=== PATIENT | female | born 1965 | race Caucasian/White ===

== ENCOUNTER 2017-06-19 16:49 | Emergency (ER) | payer BC ==
[2017-06-19 16:59] VITALS: BP 145/84
[2017-06-19] MEDS ORDERED: KETOROLAC TROMETHAMINE 60 MG/2 ML VIAL IM ONE ×2 (17:17→17:20)
--- NOTE | 2017-06-19 17:19 | ERNOTE ---
Lower Extremity HPI - Narrative Date of Service: 06/19/17 - General Lower Extremities Pain: foot: left, ankle: left Time Seen by Provider: 06/19/17 17:07 Source: patient, RN notes reviewed Exam Limitations: no limitations - Immun/Allergies/Home Medications Immunizations: IMMUNIZATION HX Immunizations Up to Date Yes History of Influenza Vaccine Yes Hx Pneumococcal Vaccination No Allergies/Adverse Reactions: Allergies Allergy/AdvReac Type Severity Reaction Status Date / Time codeine Allergy Mild Muscle Pain Verified 06/27/17 09:05 Home Medications: HOME MEDICATIONS Modafinil [Provigil] 200 mg PO DAILY 11/21/14 [Last Taken Unknown] Lansoprazole [Prevacid] 20 mg PO BID 01/28/15 [Last Taken Unknown] Sucralfate [Carafate] 1 gm PO QID 06/19/17 [Last Taken Unknown] Cyclobenzaprine HCl [Flexeril] 10 mg PO TID #30 tablet 06/27/17 [Last Taken Unknown] Estradiol 2 mg PO DAILY 06/27/17 [Last Taken Unknown] - History of Present Illness Narrative: 52 y/o female presents with left foot and ankle pain after twisting her ankle, causing her to fall. She is also having low back pain d/t the fall. Occurred: just prior to arrival Location of Incident: other Method of Injury: Reports: fell, twisted Loss of Consciousness: Reports: no loss of consciousness Associated Symptoms: Denies: unable to bear weight, snapping, popping sensation Other Injuries: Reports: back Subsequent Symptoms: Denies: sensory loss, numbness, motor loss Prior Treament: Denies: recently seen, similar symptoms before Review of Systems - Review of Systems Constitutional: Absent: recent illness, fever EYE: Present: no symptoms reported ENT: Present: no symptoms reported Respiratory: Present: no symptoms reported Cardiology: Absent: chest pain, syncope Gastrointestinal/Abdominal: Absent: nausea, vomiting, abdominal pain Genitourinary: Absent: dysuria, hematuria Musculoskeletal: Present: back pain, muscle pain, joint pain, joint swelling. Absent: neck pain Skin: Absent: rash, lesions, lumps Neurological: Absent: weakness, numbness, tingling Endocrine: Present: no symptoms reported Hematologic/Lymphatic: Absent: easy bruising, easy bleeding Psych: Present: no symptoms reported - Patient's Past Medical History Patient History - Medical: Depression, GERD Patient History - Cardiac/Respiratory: No pertinent hx Patient History - Cancer: No Hx of Cancer Patient History - Surgical Procedures: Appendectomy, Cholecystectomy, Hysterectomy Patient History - Other: None LMP (females 10-50): Menopausal - Social History Living Situations: home Abuse History: No History of abuse Psych History: No pertinent hx Smoking Status: Current every day smoker Alcohol Use: none Drug Use: none - Immunizations Immunizations Up to Date: Yes Hx Pneumococcal Vaccination: No History of Influenza Vaccine: Yes Physical Exam - Physical Exam General Appearance: Present: wd/wn, alert, no apparent distress Head Exam: Present: normal inspection, no evidence of injury Neck: Present: normal inspection, nontender, supple, full range of motion Respiratory: Present: no respiratory distress, normal breath sounds, no accessory muscle use, lungs clear Cardiovascular/Chest: Present: regular rate, rhythm, no murmur, normal peripheral pulses Peripheral Pulses: N=norm/S=strong/W=weak/B=bound/A=absent: Dorsalis-pedis (R): Strong, Dorsalis-pedis (L): Strong Back Exam: Present: normal range of motion, no CVA tenderness, no vertebral tenderness, other - mild paraspinal muscle tenderness in lumbar region bilaterally Extremity Exam: Present: no edema, decreased range of motion - Left ankle, other - Left lateral ankle tender to palpation, diffuse tenderness in foot, no ecchymosis or deformity. Absent: joint swelling Neurological Exam: Present: alert, oriented, normal mood/affect, no motor/ sensory deficits Skin Exam: Present: normal color, warm/dry ED Progress - Vital Signs Patient's Vital Signs:: I have reviewed the patient's vital signs. Vital Signs: Vital Signs 06/19/17 06/19/17 16:56 17:03 Temperature 37.2 C Pulse Rate 95 95 Respiratory 17 Rate Blood Pressure 145/84 O2 Sat by Pulse 98 Oximetry - X-Ray X-Ray #1 X-Ray: ankle Interpretation: Reviewed by me X-ray Comments: Left ankle - no acute osseous abnormality X-Ray #2 X-Ray: foot Interpretation: Reviewed by me X-ray Comments: Foot 3 Views LT * There is a questionable lucency projecting over the base of the fifth metatarsal bone. There is a tiny ossific fragment seen projecting over the lateral base of the second proximal phalanx which could represent an avulsion injury, of indeterminate age. Joint spaces are in gross normal alignment without subluxation or dislocation. Lisfranc joint grossly intact. Soft tissues are grossly normal. IMPRESSION: 1. Equivocal lucency over the base of the fifth metatarsal bone. Could represent artifact versus possible nondisplaced fracture. Correlate clinically. 2. Possible avulsion injury of the base of the second proximal phalanx of indeterminate age. Correlate clinically. Electronically signed by Jermain Blanchard M.D.. - Progress/Reassessment Chief Complaint: Fall Progress:: Improved Departure Clinical Impression: Back pain due to injury Sprain of foot, left Qualifiers: Encounter type: initial encounter Qualified Code(s): S93.602A - Unspecified sprain of left foot, initial encounter Fall Qualifiers: Encounter type: initial encounter Qualified Code(s): W19.XXXA - Unspecified fall, initial encounter - Departure Disposition: Home self-care Condition: Good Instructions: Foot Sprain, Form - Excuse from Work, School, or Physical Activity Additional Instructions: Tylenol for pain Ice to sore areas Muscle relaxant will cause drowsiness - may only be able to take at bedtime Post-op shoe and SANTY wrap for support - limit weight bearing as needed Referrals: Ariana Blue ARNP [Primary Care Provider] -
== END 2017-06-19 19:04 | disposition home or self-care (01) ==
LOC: ER 16:49
PROC: 2W3TX1Z Immobilization of Left Foot using Splint (ICD-10-PCS; principal; 2017-06-19)
DX: S93.602A Unspecified sprain of left foot, initial encounter (principal); M54.9 Dorsalgia, unspecified; G89.11 Acute pain due to trauma; X50.1XXA Overexertion from prolonged static or awkward postures, initial encounter; W19.XXXA Unspecified fall, initial encounter; F17.200 Nicotine dependence, unspecified, uncomplicated

== ENCOUNTER 2017-06-27 08:50 | Emergency (ER) | payer OTHER, BC ==
[2017-06-27 09:05] VITALS: BP 141/88
[2017-06-27] MEDS ORDERED: KETOROLAC TROMETHAMINE 60 MG/2 ML VIAL IM ONE ×2 (10:47→10:51)
[2017-06-27] MEDS ORDERED: KETOROLAC TROMETHAMINE 30 MG/ML VIAL IV ONE (10:49)
--- NOTE | 2017-06-27 11:19 | ERNOTE ---
Back Pain ER HPI Time Seen by Provider: 06/27/17 09:57 Source: patient Exam Limitations: no limitations Immunizations: IMMUNIZATION HX Immunizations Up to Date Yes History of Influenza Vaccine Yes Hx Pneumococcal Vaccination No Allergies/Adverse Reactions: Allergies codeine Allergy (Mild, Verified 06/27/17 09:05) Muscle Pain Home Medications: HOME MEDICATIONS Modafinil [Provigil] 200 mg PO DAILY 11/21/14 [Last Taken Unknown] Lansoprazole [Prevacid] 20 mg PO BID 01/28/15 [Last Taken Unknown] Sucralfate [Carafate] 1 gm PO QID 06/19/17 [Last Taken Unknown] Cyclobenzaprine HCl [Flexeril] 10 mg PO TID #30 tablet 06/27/17 [Last Taken Unknown] Estradiol 2 mg PO DAILY 06/27/17 [Last Taken Unknown] Narrative: Patient was at work at [employer] this morning when 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 Apparently the resident was a large human being. To that patient fell onto the ground hitting her back on something hard. 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 No medication for her pain. She denies any loss of consciousness. Review of Systems - Review of Systems Constitutional: Present: no symptoms reported EYE: Present: no symptoms reported ENT: Present: no symptoms reported Respiratory: Present: no symptoms reported Cardiology: Present: no symptoms reported Gastrointestinal/Abdominal: Present: no symptoms reported Genitourinary: Present: no symptoms reported Musculoskeletal: Present: See HPI Skin: Present: no symptoms reported Neurological: Present: no symptoms reported - Patient's Past Medical History Patient History - Medical: Depression, GERD Patient History - Cardiac/Respiratory: No pertinent hx Patient History - Cancer: No Hx of Cancer Patient History - Surgical Procedures: Appendectomy, Cholecystectomy, Hysterectomy Patient History - Other: None - Social History Living Situations: home Abuse History: No History of abuse Psych History: No pertinent hx Alcohol Use: none Drug Use: none - Immunizations Immunizations Up to Date: Yes Hx Pneumococcal Vaccination: No History of Influenza Vaccine: Yes Physical Exam - Physical Exam General Appearance: Present: wd/wn, alert, no apparent distress Neck: Present: normal inspection - when this examiner simply touches the skin of the patient's cervical spine area posteriorly she jumps in pain. It does feel a moderate amount of muscle spasm on the left side of the spine in the thoracic region., nontender Respiratory: Present: no respiratory distress, normal breath sounds, no accessory muscle use, chest nontender, lungs clear Cardiovascular/Chest: Present: regular rate, rhythm, no murmur, normal peripheral pulses Back Exam: Present: other - patient is tender all along her spine in the cervical thoracic and lumbar spine. However when this examiner is watching the patient without the patient being aware she is moving her head and neck in all directions and playing on her iPhone Extremity Exam: Present: normal inspection, normal range of motion ED Progress - Vital Signs Patient's Vital Signs:: I have reviewed the patient's vital signs. Vital Signs: Vital Signs 06/27/17 08:58 Temperature 37.2 C Pulse Rate 99 Respiratory 18 Rate Blood Pressure 141/88 O2 Sat by Pulse 98 Oximetry - X-Ray X-Ray #1 X-Ray: lumbosacral - x-rays of cervical spine and thoracic spine and lumbosacral spine were all read by radiologist as essentially normal with no fractures. - Progress/Reassessment Chief Complaint: Back Pain Departure Clinical Impression: Back pain Qualifiers: Back pain location: thoracic back pain Chronicity: acute Back pain laterality: bilateral Qualified Code(s): M54.6 - Pain in thoracic spine - Departure Disposition: Home self-care Condition: Good Instructions: Cervical Sprain, [id number], Mid-Back Strain With Rehab- [facility], Low Back Strain With Rehab-[facility] Referrals: Ariana Blue ARNP [Primary Care Provider] - Prescriptions: Cyclobenzaprine HCl [Flexeril] 10 mg PO TID #30 tablet
== END 2017-06-27 11:37 | disposition home or self-care (01) ==
LOC: ER 08:50
DX: M54.6 Pain in thoracic spine (principal); W03.XXXA Other fall on same level due to collision with another person, initial encounter; Y93.F9 Activity, other caregiving; Y92.129 Unspecified place in nursing home as the place of occurrence of the external cause; Y99.0 Civilian activity done for income or pay

== ENCOUNTER 2021-02-09 10:29 | Observation (INO) ==
[2021-02-09 11:09] LABS: Hematocrit 38.8 % (37.0-47.0); Hemoglobin 12.9 gm/dL (12.5-16.0); Mean Cell Volume 93.9 fl (78-100); Mean Corpuscular Hemoglobin 31.2 pg (27-31); Mean Corpuscular Hgb Conc 33.2 g/dl (32-36); Mean Platelet Volume 9.1 fl (8-12.5); Neutrophil # 4.9 K/mm3 (1.3-6.0); Neutrophil % 52.8 % (42-75.0); Platelet Count 352 K/mm3 (150-450); Red Blood Count 4.13 M/mm3 (4.2-5.4); Red Cell Distribution Width 13.1 % (11.5-14.0); White Blood Count 9.3 K/mm3 (4.0-10.5)
--- NOTE | 2021-02-09 11:17 | ERNOTE ---
Medical Problem HPI - Narrative Date of Service: 02/09/21 - General Chief Complaint: General Assessment Time Seen by Provider: 02/09/21 10:47 Source: patient Exam Limitations: no limitations - Immun/Allergies/Home Medications Immunizations: IMMUNIZATION HX Immunizations Up to Date Yes History of Influenza Vaccine Yes Hx Pneumococcal Vaccination No Allergies/Adverse Reactions: Allergies codeine Allergy (Mild, Verified 02/09/21 10:34) chest pain Home Medications: HOME MEDICATIONS Lansoprazole [Prevacid] 30 mg PO BID 01/28/15 [Last Taken 01/21/18] Estradiol 2 mg PO DAILY 06/27/17 [Last Taken 01/21/18] Acetaminophen [Tylenol] 1,000 mg PO Q8H PRN 01/21/18 [Last Taken Unknown] escitalopram oxalate 20 mg tablet 20 mg PO DAILY 05/22/18 [Last Taken Unknown] modafinil 100 mg tablet 150 mg PO DAILY tab 02/25/19 [Last Taken Unknown] nabumetone 500 mg tablet 500 mg PO BID #60 tab 02/25/19 [Last Taken Unknown] - History of Present History Narrative: This patient is a 56-year-old female who is here complaining of feeling or not right. She works at the [employer]. She was rooming inmates in the medical area. She said that at 10 AM, she was walking and it felt like something struck her right eye. Her left eye then was blurry. The pain and blurriness resolved after couple minutes. She shortly after the onset developed weakness or heaviness of her entire body. She said that her hands and feet felt numb. She had some numbness of the left side yesterday. She said that the staff at the [facility] said she looked pale. She did not have numbness about her lips. She denied chest pain or palpitations. She has not been coughing or short of breath. She has no headache. She has no vision changes at this time. She is not diabetic. She does not know her medications. She denies GI/ symptoms. She has some chronic upper back pain. She continues to have generalized weakness and decreased sensation. She denies being depressed or anxious. Review of Systems - Review of Systems Constitutional: Absent: recent illness, fever, weight loss EYE: Present: see HPI ENT: Absent: ear pain, nose congestion, nasal drainage, sore throat Respiratory: Absent: shortness of breath, cough Cardiology: Absent: chest pain, palpitations, syncope Gastrointestinal/Abdominal: Absent: nausea, vomiting, diarrhea, constipation, abdominal pain Genitourinary: Absent: frequency, pain, dysuria, hematuria Musculoskeletal: Present: back pain. Absent: neck pain, joint pain Skin: Absent: rash Neurological: Present: dizziness/light-headedness, weakness, numbness, tingling. Absent: anxiety, depressed, headache, seizure Endocrine: Present: other - No diabetes or thyroid disease. Hematologic/Lymphatic: Present: other - No bleeding. 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 proximal phalanx fracture right 5th toe Onset Date: Unknown Surgical History: Surgical History (Last Reviewed 02/09/21 @ 11:11 by Andres Salas MD) H/O colonoscopy Onset Date: Unknown polyps removed History of carpal tunnel release Onset Date: ~2009 left, Dr Hermosillo History of hysterectomy Onset Date: Unknown Hx of appendectomy Onset Date: Unknown Hx of cholecystectomy Onset Date: Unknown S/P foot surgery, left Onset Date: 06/2018 metatarsal head resection 2nd toe Family History: Family History (Last Reviewed 02/09/21 @ 11:12 by Andres Salas MD) Father Myocardial infarction Mother Hypertension Diabetes Brother Diabetes Asthma Sister Asthma Son No problems noted. 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 [employer] Highest level of school completed/degree received: some college, no degree Service: No Tobacco: Smoking Status: Current every day smoker tobacco type: cigarettes Smoking cigarettes per day: 10.0 Smoking packs per day: 0.5 Tobacco: How many years used: 45 quit status: not considering quitting Alcohol: alcohol intake: current alcohol intake frequency: holiday/special occasion Substance Use: substance use type: does not use Dietary Habits: caffeine: Yes Type: carbonated beverages Physical Exam - Physical Exam General Appearance: Present: wd/wn, alert, no apparent distress Head Exam: Present: normal inspection, no evidence of injury Eye Exam: Normal inspection: bilateral Ears, Nose, Throat: Present: normal ENT inspection, other - No facial asymmetry. Neck: Present: normal inspection, supple. Absent: lymphadenopathy (R), lympha denopathy (L), thyromegaly Respiratory: Present: no respiratory distress, normal breath sounds, no accessory muscle use, lungs clear Cardiovascular/Chest: Present: regular rate, rhythm, no murmur Gastrointestinal/Abdominal: Present: normal bowel sounds, nontender, nondistended, soft, no organomegaly Back Exam: Present: normal inspection Extremity Exam: Present: normal inspection, no edema Neurological Exam: Present: alert, oriented, other - The patient indicates she has weakness. When her arms are extended for drift testing, she immediately drops them to the table and then lifts them back up part way. She does not make any effort to forger helper. She was able to hold onto the table rail while sitting up. She is able to slowly lift her legs Skin Exam: Present: normal color, warm/dry. Absent: skin rash Progress - Date and Time Seen: Date and Time: 02/09/21 12:34 The patient was able to use her right leg at the end of my exam. She was able to use the bathroom rather than need a catheter for the urine specimen. The use of her arms seem to be variable depending on the circumstance. After the CT and labs are back, she continued to complain of left-sided heaviness. She, with encouragement, was able to lift her arms up and hold them. She did not seem to have any drift. She seemed to have poor effort with forger helper testing bilaterally. I spoke with the stroke team at [facility]. They did not feel she was a TPA candidate given the presenting symptoms and improvement in symptoms. Dr. Lloyd agreed to observe the patient here. - Results and Orders Patient's Lab Results:: I have reviewed the patient's lab results. Results and Orders: Laboratory Tests 02/09/21 02/09/21 02/09/21 11:05 11:05 11:19 WBC 9.3 RBC 4.13 L Hgb 12.9 Hct 38.8 MCV 93.9 MCH 31.2 H MCHC 33.2 RDW 13.1 Plt Count 352 MPV 9.1 Immature Gran % (Auto) 0.20 Immature Gran # (Auto) 0.02 Neutrophils % 52.8 Lymphocytes % 41.4 Monocytes % 3.9 Eosinophils % 1.3 Basophils % 0.4 Nucleated RBC % 0.0 Neutrophils # 4.9 Lymphocytes # 3.85 H Monocytes # 0.4 Eosinophils # 0.1 Absolute Basophils 0.0 pCO2 pO2 HCO3 Total CO2 Base Excess ABG pH ABG O2 Sat (Measured) Sodium 140 Plasma Sodium 140 Potassium 3.5 Chloride 106 Carbon Dioxide 23.6 L Anion Gap 13.9 H BUN 14 Creatinine 0.75 Est GFR (Non-Af Amer) 85 BUN/Creatinine Ratio 18.7 Random Glucose 92 Calcium 8.8 Calcium Adj for Albumin 8.8 Total Bilirubin 0.1 AST 13 ALT 19 Alkaline Phosphatase 76 Troponin I Less than 0.017 Total Protein 6.5 Albumin 3.6 TSH 0.705 Urine Color Yellow Urine Appearance Clear Urine pH 6.0 Ur Specific [place] 1.010 Urine Protein Negative Urine Glucose (UA) Negative Urine Ketones Negative Urine Blood Negative Urine Nitrate Negative Urine Bilirubin Negative Urine Urobilinogen Normal Ur Leukocyte Esterase Negative Urine RBC None seen Urine WBC None seen Ur Epithelial Cells None seen Urine Bacteria None seen Urine Culture Comments No culture indicated Ethyl Alcohol Less than 3.0 02/09/21 11:25 WBC RBC Hgb Hct MCV MCH MCHC RDW Plt Count MPV Immature Gran % (Auto) Immature Gran # (Auto) Neutrophils % Lymphocytes % Monocytes % Eosinophils % Basophils % Nucleated RBC % Neutrophils # Lymphocytes # Monocytes # Eosinophils # Absolute Basophils pCO2 33.8 pO2 97.4 HCO3 21.3 Total CO2 22.3 Base Excess -2.5 L ABG pH 7.42 ABG O2 Sat (Measured) 97.6 Sodium Plasma Sodium Potassium Chloride Carbon Dioxide Anion Gap BUN Creatinine Est GFR (Non-Af Amer) BUN/Creatinine Ratio Random Glucose Calcium Calcium Adj for Albumin Total Bilirubin AST ALT Alkaline Phosphatase Troponin I Total Protein Albumin TSH Urine Color Urine Appearance Urine pH Ur Specific [place] Urine Protein Urine Glucose (UA) Urine Ketones Urine Blood Urine Nitrate Urine Bilirubin Urine Urobilinogen Ur Leukocyte Esterase Urine RBC Urine WBC Ur Epithelial Cells Urine Bacteria Urine Culture Comments Ethyl Alcohol Laboratory Tests 02/09/21 11:19 Urine Opiates Screen Negative Barbiturate Screen Negative Ur Phencyclidine Scrn Negative Urine Amphetamine Negative U Benzodiazepines Scrn Negative Urine Cocaine Screen Negative Urine Marijuana (THC) Negative - Vital Signs Patient's Vital Signs:: I have reviewed the patient's vital signs. Vital Signs: Vital Signs 02/09/21 10:29 Temperature 36.5 C Pulse Rate 73 Respiratory Rate 16 Blood Pressure 150/76 H O2 Sat by Pulse Oximetry 97 - EKG EKG #1 EKG read: Interp. by me EKG Comments: 10: 34 Normal sinus rhythm Rate 68 Normal EKG Compared to an EKG dated 01/21/2018, the rate is slower. - CT/Ultrasound CT/Ultrasound Narrative: CT Head W/O *~ Exam Date: 02/09/2021 11:36 Ordering Physician: Andres Salas MD History: Generalized weakness. Technique: Multiple axial images of the head obtained without contrast enhancement. Individualized dose optimization technique was used for the performed procedure including automated exposure control, adjustment of the MA and or KV according to patient size and/or use of iterative reconstruction technique. Comparison: CT brain from 11/20/2018. Findings: No ischemic or hemorrhagic infarct. No mass, mass effect or midline shift. No skull fracture. Paranasal sinuses and mastoids are clear. IMPRESSION: NEGATIVE NONCONTRAST CT OF THE BRAIN. Electronically signed by Petar Beck MD. - Progress/Reassessment Chief Complaint: General Assessment Departure Clinical Impression: Weakness generalized, Left-sided weakness - Departure Disposition: Still a patient Condition: Stable Referrals: rAiana Blue ARNP [Primary Care Provider] -
[2021-02-09 11:24] LABS: Urine Bilirubin Negative (NEGATIVE); Urine Blood Negative /ul (NEGATIVE); Urine Ketone Negative (NEGATIVE); Urine Nitrite Negative (NEGATIVE); Urine Protein Negative (NEGATIVE); Urine Urobilinogen Normal (NORMAL)
[2021-02-09 11:27] LABS: Troponin I Less than 0.017 ng/mL (0.00-0.10)
[2021-02-09 11:30] LABS: Urine Appearance Clear (CLEAR); Urine Bacteria None Seen; Urine Color Yellow; Urine RBC None Seen /hpf (0-5); Urine WBC None Seen /hpf (0-5)
[2021-02-09 11:30] LABS: ALT 19 U/L (19-67); AST 13 U/L (0-48); Albumin * 3.6 gm/dl (3.4-5.0); Alkaline Phosphatase * 76 U/L (50-170); Anion Gap 13.9 mmol/L (6.8-13.8); BUN/Creatinine Ratio 18.7 (9.0-21.6); Bilirubin, Total 0.1 mg/dL (0.0-1.1); Blood Urea Nitrogen 14 mg/dL (3-23); Ca. Corrected For Albumin 8.8 mg/dL (8.4-10.2); Calcium * 8.8 mg/dL (7.9-10.9); Carbon Dioxide 23.6 mmol/L (24-32.6); Chloride 106 mmol/L (97-106); Glucose * 92 mg/dL (70-110); Potassium 3.5 mmol/L (3.4-4.6); Sodium 140 mmol/L (132-142); Total Protein 6.5 gm/dL (6.2-8.2)
[2021-02-09 11:31] LABS: TSH * 0.705 uIU/mL (0.358-3.74)
[2021-02-09 11:38] LABS: Cocaine Ur Negative (NEGATIVE); Urine Barbiturate Negative (NEGATIVE); Urine Benzodiazepines Negative (NEGATIVE); Urine Opiates Negative (NEGATIVE); Urine PCP Negative (NEGATIVE)
[2021-02-09 11:40] LABS: Urine THC Negative (NEGATIVE)
[2021-02-09] MEDS: NICOTINE 21 MG PATC TD SCH (16:27)
[2021-02-09] MEDS ORDERED: PATIENT'S OWN MEDICATION 1 DOSE DOSE PO PRN (23:18)
[2021-02-09] MEDS: ACETAMINOPHEN 500 MG TABLET PO PRN (23:28)
[2021-02-09] MEDS ORDERED: TOPIRAMATE 50 MG TABLET PO SCH (23:30)
[2021-02-10] MEDS: ACETAMINOPHEN 500 MG TABLET PO PRN (07:08)
[2021-02-10] MEDS ORDERED: RIZATRIPTAN 10 MG PO PRN (07:30)
[2021-02-10] MEDS ORDERED: ROSUVASTATIN CALCIUM 5 MG TABLET PO SCH (09:00)
[2021-02-10] MEDS ORDERED: PANTOPRAZOLE SODIUM 40 MG TABLET.EC PO SCH (09:00)
[2021-02-10] MEDS ORDERED: POTASSIUM CHLORIDE 10 MEQ TABLET.SA PO SCH (09:00)
[2021-02-10] MEDS ORDERED: ASPIRIN 325 MG TABLET.DR PO SCH (09:00)
[2021-02-10] MEDS ORDERED: LISINOPRIL 20 MG TABLET PO SCH (09:00)
[2021-02-10 09:05] LABS: Hematocrit 41.7 % (37.0-47.0); Hemoglobin 13.2 gm/dL (12.5-16.0); Mean Cell Volume 96.3 fl (78-100); Mean Corpuscular Hemoglobin 30.5 pg (27-31); Mean Corpuscular Hgb Conc 31.7 g/dl (32-36); Mean Platelet Volume 9.3 fl (8-12.5); Neutrophil # 3.4 K/mm3 (1.3-6.0); Neutrophil % 44.9 % (42-75.0); Platelet Count 361 K/mm3 (150-450); Red Blood Count 4.33 M/mm3 (4.2-5.4); Red Cell Distribution Width 13.2 % (11.5-14.0); White Blood Count 7.6 K/mm3 (4.0-10.5)
[2021-02-10 09:32] LABS: Albumin * 3.6 gm/dl (3.4-5.0); Anion Gap 13.7 mmol/L (6.8-13.8); BUN/Creatinine Ratio 13.2 (9.0-21.6); Bilirubin, Total 0.1 mg/dL (0.0-1.1); Ca. Corrected For Albumin 9.4 mg/dL (8.4-10.2); Calcium * 9.4 mg/dL (7.9-10.9); Carbon Dioxide 25.1 mmol/L (24-32.6); Potassium 3.8 mmol/L (3.4-4.6); Total Protein 6.3 gm/dL (6.2-8.2)
--- NOTE | 2021-02-10 10:12 | HP ---
Chief Complaint - Chief Complaint Date of Service: 02/09/21 Time of Service: 21:30 Chief Complaint: Weakness History of Present Illness: Mary Jane is a 56 yo female who presented to the [facility] ER with sudden onset of left sided weakness/heaviness. 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 She was confused and stumbling. She reports he memory around this time is hazy. She denies any change in her usual (medications, environment, exposure to any chemicals, etc). Upon presenting to the [facility] ER she continued to have left sided "heaviness and weakness". She was able to move all extremities in general but would have brief periods of time where she seemed unable to follow tasks one minute and be fine the next. Head CT was unremarkable. Labs were unremarkable. [facility] stroke team was contacted by ER provider per my request and recommended against TPA with her symptoms and did not suggest her symptoms were a manifestation of a stroke. At the time of my examination she reports feeling better. She still feels her left arm and leg are heavy feeling and she thinks maybe there is decreased sensation. She reports the eye symptoms were brief and resolved by the time she arrived to the ER. 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 proximal phalanx fracture right 5th toe Onset Date: Unknown Surgical History: Surgical History (Last Reviewed 02/09/21 @ 14:07 by Antonio Trujillo RN) H/O colonoscopy Onset Date: Unknown polyps removed History of carpal tunnel release Onset Date: ~2009 left, Dr Hermosillo History of hysterectomy Onset Date: Unknown Hx of appendectomy Onset Date: Unknown Hx of cholecystectomy Onset Date: Unknown S/P foot surgery, left Onset Date: 06/2018 metatarsal head resection 2nd toe Family History: Family History (Last Reviewed 02/09/21 @ 14:07 by Antonio Trujillo RN) Father Myocardial infarction Mother Hypertension Diabetes Brother Diabetes Asthma Sister Asthma Son No problems noted. Social History: (Last Reviewed 02/09/21 @ 14:07 by Antonio Trujillo RN) Social History: Marital status: household members: spouse current occupational status: employed current occupation: CLEANING STAFF SUPERVISOR Highest level of school completed/degree received: some college, no degree Service: No Tobacco: Smoking Status: Current every day smoker tobacco type: cigarettes Smoking cigarettes per day: 10.0 Smoking packs per day: 0.5 Tobacco: How many years used: 45 quit status: not considering quitting Alcohol: alcohol intake: current alcohol intake frequency: holiday/special occasion Substance Use: substance use type: does not use Dietary Habits: caffeine: Yes Type: carbonated beverages Review Of Systems (GEN) - Review of Systems Generalized/Overall Review: Present: Weakness, Fatigue. Absent: Chills, Fever EENTM: Present: No Symptoms Reported Respiratory: Absent: Cough, Shortness of Breath Cardiac: Absent: Chest Pain, Edema, Palpitations, Syncope Abdominal: Absent: Nausea, Vomiting, Abdominal Pain, Constipation, Diarrhea Genitourinary: Absent: Burning, Frequency Musculoskeletal: Present: Neck Pain Neurological: Present: Weakness. Absent: Numbness, Tingling, Tremors Skin: Present: No Symptoms Reported Endocrine: Present: No Symptoms Reported Immunizations: IMMUNIZATION HX Immunizations Up to Date Yes History of Influenza Vaccine Yes Hx Pneumococcal Vaccination No Allergies/Adverse Reactions: Allergies Allergy/AdvReac Type Severity Reaction Status Date / Time codeine Allergy Mild chest pain Verified 02/09/21 14:07 Home Medications: HOME MEDICATIONS Lansoprazole [Prevacid] 30 mg PO BID 01/28/15 [Last Taken 01/21/18] Acetaminophen [Tylenol] 1,000 mg PO Q8H PRN 01/21/18 [Last Taken Unknown] Albuterol Sulfate [Proair Respiclick] 90 mcg IH QID 02/09/21 [Last Taken Unknown] Armodafinil [Nuvigil] 200 mg PO DAILY 02/09/21 [Last Taken Unknown] Aspirin 325 mg PO DAILY 02/09/21 [Last Taken Unknown] Atorvastatin Calcium [Lipitor] 10 mg PO DAILY 02/09/21 [Last Taken Unknown] Lisinopril 20 mg PO DAILY 02/09/21 [Last Taken Unknown] Potassium Chloride 10 meq PO DAILY 02/09/21 [Last Taken Unknown] Rizatriptan Benzoate [Maxalt Engineered Wood Designer] 10 mg PO prn PRN 02/09/21 [Last Taken Unknown] Topiramate [Topamax] 100 mg PO DAILY 02/09/21 [Last Taken Unknown] Exam - Exam Vital Signs: Vital Signs - Last Taken Temp 36.5 C 02/10/21 06:00 Pulse 67 02/10/21 08:30 Resp 16 02/10/21 06:00 BP 108/67 02/10/21 08:30 Pulse Ox 95 02/10/21 06:00 Constitutional: Present: Alert, Oriented x3, Cooperative ENT Exam: Present: hearing grossly normal Eye Exam: bilateral eye: normal inspection Respiratory: Present: lungs clear, normal breath sounds Cardiovascular/Chest: Present: regular rate, rhythm, no murmur Peripheral Pulses: radial (R): 2+, radial (L): 2+ Abdomen: Present: Normal bowel sounds, soft, nontender, nondistended Extremity: Present: normal range of motion, normal inspection, normal capillary refill Skin Exam: Present: normal color, warm/dry, no cyanosis Lymphatic: Present: no adenopathy Neurologic: Present: no motor/sensory deficits, alert, normal mood/affect, oriented x 3. Absent: abnormal gait, aphasia, facial droop, motor weakness, sensory deficit Appearance: Present: appropriate appearance, appropriate insight Eye contact: Present: cooperative, good eye contact, normal speech Thoughts: Present: normal thought pattern, no apparent hallucination Diagnostic Studies: Abnormal Lab Results 02/09/21 02/09/21 02/09/21 Range/Units 11:05 11:05 11:25 RBC 4.13 L (4.2-5.4) M/mm3 MCH 31.2 H (27-31) pg MCHC (32-36) g/dl Lymphocytes # 3.85 H (1.5-3.5) k/mm3 Base Excess -2.5 L (-2.0-3.0) mmol/L Chloride (97-106) mmol/L Carbon Dioxide 23.6 L (24-32.6) mmol/L Anion Gap 13.9 H (6.8-13.8) mmol/L Random Glucose (70-110) mg/dL ALT (19-67) U/L 05/01/21 05/01/21 Range/Units 08:30 08:30 RBC (4.2-5.4) M/mm3 MCH (27-31) pg MCHC 31.7 L (32-36) g/dl Lymphocytes # 3.56 H (1.5-3.5) k/mm3 Base Excess (-2.0-3.0) mmol/L Chloride 107 H (97-106) mmol/L Carbon Dioxide (24-32.6) mmol/L Anion Gap (6.8-13.8) mmol/L Random Glucose 112 H (70-110) mg/dL ALT 18 L (19-67) U/L Laboratory Results WBC 7.6 K/mm3 (4.0-10.5) 02/10/21 08:30 RBC 4.33 M/mm3 (4.2-5.4) 02/10/21 08:30 Hgb 13.2 gm/dL (12.5-16.0) 02/10/21 08:30 Hct 41.7 % (37.0-47.0) 02/10/21 08:30 MCV 96.3 fl (78-100) 02/10/21 08:30 MCH 30.5 pg (27-31) 02/10/21 08:30 MCHC 31.7 g/dl (32-36) L 02/10/21 08:30 RDW 13.2 % (11.5-14.0) 02/10/21 08:30 Plt Count 361 K/mm3 (150-450) 02/10/21 08:30 MPV 9.3 fl (8-12.5) 02/10/21 08:30 Immature Gran % (Auto) 0.10 % (0.001-0.429) 02/10/21 08:30 Immature Gran # (Auto) 0.01 K/mm3 (0.000-0.0310) 02/10/21 08:30 Neutrophils % 44.9 % (42-75.0) 02/10/21 08:30 Lymphocytes % 46.9 % (20-51) 02/10/21 08:30 Monocytes % 4.6 % (0.0-9) 02/10/21 08:30 Eosinophils % 3.0 % (0.0-3.0) 02/10/21 08:30 Basophils % 0.5 % (0.0-1.0) 02/10/21 08:30 Nucleated RBC % 0.0 k/mm3 (0-1) 02/10/21 08:30 Neutrophils # 3.4 K/mm3 (1.3-6.0) 02/10/21 08:30 Lymphocytes # 3.56 k/mm3 (1.5-3.5) H 02/10/21 08:30 Monocytes # 0.4 k/mm3 (0.0-1.0) 02/10/21 08:30 Eosinophils # 0.2 k/mm3 (0.0-0.7) 02/10/21 08:30 Absolute Basophils 0.0 k/mm3 (0.0-0.1) 02/10/21 08:30 pCO2 33.8 mmHg (32.0-45.0) 02/09/21 11:25 pO2 97.4 mmHg (83.0-108.0) 02/09/21 11:25 HCO3 21.3 mmol/L (21.0-28.0) 02/09/21 11:25 Total CO2 22.3 mmol/L (19.0-24.0) 02/09/21 11:25 Base Excess -2.5 mmol/L (-2.0-3.0) L 02/09/21 11:25 ABG pH 7.42 (7.35-7.45) 02/09/21 11:25 ABG O2 Sat (Measured) 97.6 % (94.0-98.0) 02/09/21 11:25 Sodium 142 mmol/L (132-142) 02/10/21 08:30 Plasma Sodium 142 mmol/L (130-142) 02/10/21 08:30 Potassium 3.8 mmol/L (3.4-4.6) 02/10/21 08:30 Chloride 107 mmol/L (97-106) H 02/10/21 08:30 Carbon Dioxide 25.1 mmol/L (24-32.6) 02/10/21 08:30 Anion Gap 13.7 mmol/L (6.8-13.8) 02/10/21 08:30 BUN 12 mg/dL (3-23) 02/10/21 08:30 Creatinine 0.91 mg/dL (0.4-1.4) 02/10/21 08:30 Est GFR (Non-Af Amer) 68 mL/min (60-130) 02/10/21 08:30 BUN/Creatinine Ratio 13.2 (9.0-21.6) 02/10/21 08:30 Random Glucose 112 mg/dL (70-110) H 02/10/21 08:30 Calcium 9.4 mg/dL (7.9-10.9) 02/10/21 08:30 Calcium Adj for Albumin 9.4 mg/dL (8.4-10.2) 02/10/21 08:30 Total Bilirubin 0.1 mg/dL (0.0-1.1) 02/10/21 08:30 AST 11 U/L (0-48) 02/10/21 08:30 ALT 18 U/L (19-67) L 02/10/21 08:30 Alkaline Phosphatase 80 U/L (50-170) 02/10/21 08:30 Troponin I Less than 0.017 ng/mL (0.00-0.10) 02/09/21 11:05 Total Protein 6.3 gm/dL (6.2-8.2) 02/10/21 08:30 Albumin 3.6 gm/dl (3.4-5.0) 02/10/21 08:30 TSH 0.705 uIU/mL (0.358-3.74) 02/09/21 11:05 Urine Color Yellow 02/09/21 11:19 Urine Appearance Clear (CLEAR) 02/09/21 11:19 Urine pH 6.0 pH (5.0-7.0) 02/09/21 11:19 Ur Specific [place] 1.010 SP.GR. (1.005-1.010) 02/09/21 11:19 Urine Protein Negative mg/dL (NEGATIVE) 02/09/21 11:19 Urine Glucose (UA) Negative mg/dL (NEGATIVE) 02/09/21 11:19 Urine Ketones Negative mg/dL (NEGATIVE) 02/09/21 11:19 Urine Blood Negative /ul (NEGATIVE) 02/09/21 11:19 Urine Nitrate Negative (NEGATIVE) 02/09/21 11:19 Urine Bilirubin Negative mg/dl (NEGATIVE) 02/09/21 11:19 Urine Urobilinogen Normal EU/dl (NORMAL) 02/09/21 11:19 Ur Leukocyte Esterase Negative /ul (NEGATIVE) 02/09/21 11:19 Urine RBC None seen /hpf (0-5) 02/09/21 11:19 Urine WBC None seen /hpf (0-5) 02/09/21 11:19 Ur Epithelial Cells None seen /hpf (0-5) 02/09/21 11:19 Urine Bacteria None seen (NONE) 02/09/21 11:19 Urine Culture Comments No culture indicated 02/09/21 11:19 Urine Opiates Screen Negative (NEGATIVE) 02/09/21 11:19 Barbiturate Screen Negative (NEGATIVE) 02/09/21 11:19 Ur Phencyclidine Scrn Negative (NEGATIVE) 02/09/21 11:19 Urine Amphetamine Negative (NEGATIVE) 02/09/21 11:19 U Benzodiazepines Scrn Negative (NEGATIVE) 02/09/21 11:19 Urine Cocaine Screen Negative (NEGATIVE) 02/09/21 11:19 Urine Marijuana (THC) Negative (NEGATIVE) 02/09/21 11:19 Ethyl Alcohol Less than 3.0 mg/dL (0.0-10.0) 02/09/21 11:05 SARS-CoV-2 (PCR) Not detected (NotDetected) 02/09/21 12:41 Assessment/Plan - Narrative Narrative: Mary Jane is a 56 yo female with reported left sided weakness. Strength testing and neurological evaluation appears normal. Head CT normal. Will monitor overnight in observation. If she continues to report left sided weakness may evaluate with Brain MRI otherwise anticipate being able to discharge to home tomorrow. - Assessment/Plan (1) Left-sided weakness Problem: Acute
[2021-02-10] MEDS ORDERED: ALBUTEROL SULFATE 200 PUFF INHALER IH PRN (12:44)
[2021-02-10] MEDS: NICOTINE 21 MG PATC TD SCH (15:54)
--- NOTE | 2021-02-10 18:44 | DS ---
(1) Left-sided weakness Problem: Resolved Date of Discharge:: 02/10/21 Hospital Course: Mary Jane is a 56 yo female admitted for left sided weakness, confusion, right eye pain, left eye blurring, and gait imbalance. Initial evaluation in the ER showed normal Head CT, general labs, and urine. She was admitted to observation and monitored for neurological change. Her symptoms were mostly gone by the time she was admitted with only the report of left sided "heaviness" still present. She had no new symptoms and the heaviness slowly improved. No significant abnormalities were appreciated from physical exam. Attempted to order a Brain MRI but with no acute findings and being in observation we were not able to prior authorize a Brain MRI on the weekend. Will order an outpatient Brain MRI to further evaluate her continued symptoms. There are no significant findings to keep her in the hospital and none that would prevent her from returning to work. Procedures Performed: none Results and Findings: Lab Pending Results 02/09/21 11:05: WBC 9.3, RBC 4.13 L, Hgb 12.9, Hct 38.8, MCV 93.9, MCH 31.2 H, MCHC 33.2, RDW 13.1, Plt Count 352, MPV 9.1, Immature Gran % (Auto) 0.20, Immature Gran # (Auto) 0.02, Neutrophils % 52.8, Lymphocytes % 41.4, Monocytes % 3.9, Eosinophils % 1.3, Basophils % 0.4, Nucleated RBC % 0.0, Neutrophils # 4.9, Lymphocytes # 3.85 H, Monocytes # 0.4, Eosinophils # 0.1, Absolute Basophils 0.0 02/09/21 11:05: Sodium 140, Plasma Sodium 140, Potassium 3.5, Chloride 106, Carbon Dioxide 23.6 L, Anion Gap 13.9 H, BUN 14, Creatinine 0.75, Est GFR (Non- Af Amer) 85, BUN/Creatinine Ratio 18.7, Random Glucose 92, Calcium 8.8, Calcium Adj for Albumin 8.8, Total Bilirubin 0.1, AST 13, ALT 19, Alkaline Phosphatase 76, Troponin I Less than 0.017, Total Protein 6.5, Albumin 3.6, TSH 0.705, Ethyl Alcohol Less than 3.0 02/09/21 11:19: Urine Color Yellow, Urine Appearance Clear, Urine pH 6.0, Ur Specific [place] 1.010, Urine Protein Negative, Urine Glucose (UA) Negative, Urine Ketones Negative, Urine Blood Negative, Urine Nitrate Negative, Urine Bilirubin Negative, Urine Urobilinogen Normal, Ur Leukocyte Esterase Negative, Urine RBC None seen, Urine WBC None seen, Ur Epithelial Cells None seen, Urine Bacteria None seen, Urine Culture Comments No culture indicated 02/09/21 11:19: Urine Opiates Screen Negative, Barbiturate Screen Negative, Ur Phencyclidine Scrn Negative, Urine Amphetamine Negative, U Benzodiazepines Scrn Negative, Urine Cocaine Screen Negative, Urine Marijuana (THC) Negative 02/09/21 11:25: pCO2 33.8, pO2 97.4, HCO3 21.3, Total CO2 22.3, Base Excess -2.5 L, ABG pH 7.42, ABG O2 Sat (Measured) 97.6 02/09/21 12:41: SARS-CoV-2 (PCR) Not detected 02/10/21 08:30: WBC 7.6, RBC 4.33, Hgb 13.2, Hct 41.7, MCV 96.3, MCH 30.5, MCHC 31.7 L, RDW 13.2, Plt Count 361, MPV 9.3, Immature Gran % (Auto) 0.10, Immature Gran # (Auto) 0.01, Neutrophils % 44.9, Lymphocytes % 46.9, Monocytes % 4.6, Eosinophils % 3.0, Basophils % 0.5, Nucleated RBC % 0.0, Neutrophils # 3.4, Lymphocytes # 3.56 H, Monocytes # 0.4, Eosinophils # 0.2, Absolute Basophils 0.0 02/10/21 08:30: Sodium 142, Plasma Sodium 142, Potassium 3.8, Chloride 107 H, Carbon Dioxide 25.1, Anion Gap 13.7, BUN 12, Creatinine 0.91, Est GFR (Non-Af Amer) 68, BUN/Creatinine Ratio 13.2, Random Glucose 112 H, Calcium 9.4, Calcium Adj for Albumin 9.4, Total Bilirubin 0.1, AST 11, ALT 18 L, Alkaline Phosphatase 80, Total Protein 6.3, Albumin 3.6 Discharge Location: Home Disposition: Home self-care Condition: Stable Discharge Activity: Activity as tolerated Discharge Diet: General/regular food Referrals: Ariana Blue ARNP [Primary Care Provider] - One Week Problem Oriented Discharge Instructions to Patient/Family: Transient Ischemic Attack, [id number] Prescriptions (Any new or edited meds): Alprazolam 1 mg PO ONCE #1 tab Transmission Status: Sent to [id number] Complete Home Medications List: Complete Home Medication List: Lansoprazole [Prevacid] 30 mg PO BID 01/28/15 Acetaminophen [Tylenol] 1,000 mg PO Q8H PRN 01/21/18 Albuterol Sulfate [Proair Respiclick] 90 mcg IH QID 02/09/21 Armodafinil [Nuvigil] 200 mg PO DAILY 02/09/21 Aspirin 325 mg PO DAILY 02/09/21 Atorvastatin Calcium [Lipitor] 10 mg PO DAILY 02/09/21 Lisinopril 20 mg PO DAILY 02/09/21 Potassium Chloride 10 meq PO DAILY 02/09/21 Rizatriptan Benzoate [Maxalt Block Trimmer] 10 mg PO prn PRN 02/09/21 Topiramate [Topamax] 100 mg PO DAILY 02/09/21 Alprazolam 1 mg PO ONCE #1 tab 02/10/21 Amb Orders for Discharge: MRI Brain W/WO * Time Frame: 2 Days, Facility: [facility], Location: Radiology
[2021-02-10 19:06] VITALS: BP 129/85
== END 2021-02-10 19:35 | disposition home or self-care (01) ==
LOC: ER 10:29 → MS 10:29
PROVIDERS: ADMIT Family Medicine; ATTEND Family Medicine